=== PATIENT | female | born 1985 | race Two or more races ===

== ENCOUNTER 2022-03-19 19:59 | Emergency (ER) | payer BC, OTHER ==
[~2022-03-19] VITALS: Ht 149.9 cm; Wt 51.7 kg
[2022-03-19 20:03] VITALS: BP 137/79
[2022-03-19 23:35] LABS: APPEARANCE,URINE HAZY (CLEAR); BILIRUBIN,URINE NEGATIVE (NEGATIVE); GLUCOSE, URINE (UA) NEGATIVE (NEGATIVE); KETONES,URINE NEGATIVE (NEGATIVE); LEUKOCYTE ESTERASE ,URINE SMALL (NEGATIVE); NITRATE,URINE POSITIVE (NEGATIVE); OCCULT BLOOD,URINE MODERATE (NEGATIVE); PROTEIN,URINE TRACE mg/dL (NEGATIVE); UROBILINOGEN,URINE <=1.0 mg/dL (<=1.0)
[2022-03-19 23:47] LABS: BACTERIA,URINE Many /HPF (None Seen); SQUAMOUS EPITHELIAL CELL,UR Moderate /LPF (None Seen)
== END 2022-03-20 00:48 | disposition home or self-care (01) ==
LOC: EMS 20:18
DX: S50.01XA Contusion of right elbow, initial encounter (principal); S63.501A Unspecified sprain of right wrist, initial encounter; S49.91XA Unspecified injury of right shoulder and upper arm, initial encounter; Z98.890 Other specified postprocedural states; W10.9XXA Fall (on) (from) unspecified stairs and steps, initial encounter; Y93.89 Activity, other specified; Y92.89 Other specified places as the place of occurrence of the external cause; Y99.8 Other external cause status
CPT/HCPCS: 71101; 72100; 81001; 87086; 99284; 73030-TC; 73080-TC; 73110-TC; Z7502

== ENCOUNTER 2022-08-11 15:19 | Emergency (ER) | payer BC ==
[~2022-08-11] VITALS: Ht 152.4 cm; Wt 54.5 kg
[2022-08-11 15:31] VITALS: BP 122/77
[2022-08-11] MEDS ORDERED: KETOROLAC TROMETHAMINE 30 MG/ML VIAL IM ONE (20:45)
== END 2022-08-11 22:29 | disposition home or self-care (01) ==
LOC: EMS 15:19
DX: M25.531 Pain in right wrist (principal); F32.9 Major depressive disorder, single episode, unspecified; F41.9 Anxiety disorder, unspecified
CPT/HCPCS: 99283; 73110; 96372; J1885